=== PATIENT | male | born 1995 | race African-American/Black ===

== ENCOUNTER 2021-01-17 09:20 | Emergency (ER) | payer MEDICAID ==
[~2021-01-17] VITALS: Ht 185.4 cm; Wt 73.0 kg
[2021-01-17] MEDS ORDERED: IBUPROFEN 600MG TABLET PO STA (09:50)
[2021-01-17 09:57] VITALS: BP 119/78
[2021-01-17] MEDS ORDERED: IBUP-2029 MT (11:01)
== END 2021-01-17 11:08 | disposition home or self-care (01) ==
LOC: ER 09:40
DX: S09.8XXA Other specified injuries of head, initial encounter (principal); X58.XXXA Exposure to other specified factors, initial encounter; Y93.89 Activity, other specified; Y92.89 Other specified places as the place of occurrence of the external cause; Y99.8 Other external cause status; F12.10 Cannabis abuse, uncomplicated
CPT/HCPCS: 99284

== ENCOUNTER 2021-09-04 11:02 | Emergency (ER) | payer MEDICAID, OTHER ==
[~2021-09-04] VITALS: Ht 185.4 cm; Wt 68.0 kg
[~2021-09-04 11:02] MED LIST: IBUP-2029 MT
[2021-09-04] MEDS ORDERED: IBUPROFEN 600MG TABLET PO STA (11:53)
[2021-09-04] MEDS ORDERED: BACITRACIN ZINC OINT UDPKT TOP ONE (12:00)
[2021-09-04] MEDS ORDERED: IBUP-2029 PO (12:59)
[2021-09-04] MEDS ORDERED: AMOX1TAB16 PO (12:59)
[2021-09-04 13:35] VITALS: BP 126/87
== END 2021-09-04 13:38 | disposition home or self-care (01) ==
LOC: ER 11:15
DX: S01.81XA Laceration without foreign body of other part of head, initial encounter (principal); S01.459A Open bite of unspecified cheek and temporomandibular area, initial encounter; Y04.1XXA Assault by human bite, initial encounter; Y07.499 Other family member, perpetrator of maltreatment and neglect; S50.02XA Contusion of left elbow, initial encounter; Y04.2XXA Assault by strike against or bumped into by another person, initial encounter; Y93.89 Activity, other specified; Y92.89 Other specified places as the place of occurrence of the external cause
CPT/HCPCS: 73080; 99283

== ENCOUNTER 2023-02-12 08:29 | Emergency (ER) | payer OTHER, MEDICAID ==
[~2023-02-12] VITALS: Ht 185.4 cm; Wt 82.0 kg
[~2023-02-12 08:29] MED LIST changes: +AMOX1TAB16 PO; +IBUP-2029 PO
[2023-02-12 08:33] VITALS: O2SAT 100
[2023-02-12] MEDS ORDERED: TETRACAINE 0.5% OPHTH DROPS 4ML RIGHTEYE ONE (10:00)
[2023-02-12] MEDS ORDERED: FLUORESCEIN SODIUM 1MG/STRIP RIGHTEYE ONE (10:00)
[2023-02-12] MEDS ORDERED: TOBRO RIGHTEYE (12:01)
[2023-02-12 12:39] VITALS: BP 104/77; PULSE 63; RESP 19; TEMP 97.9
== END 2023-02-12 12:41 | disposition home or self-care (01) ==
LOC: ER 08:29
DX: H10.31 Unspecified acute conjunctivitis, right eye (principal); F12.90 Cannabis use, unspecified, uncomplicated; Z98.890 Other specified postprocedural states
CPT/HCPCS: 99283